=== PATIENT | female | born 1970 ===

== ENCOUNTER 2018-07-26 10:07 | Inpatient (IN) ==
[2018-07-26] MEDS ORDERED: ZALEPLON 5 MG CAPSULE PO PRN (11:20)
[2018-07-26] MEDS ORDERED: ONDANSETRON 4 MG/2 ML VIAL IV PRN (11:20)
[2018-07-26] MEDS ORDERED: POTASSIUM CHLORIDE 20 MEQ TABLET PO PRN (11:20)
[2018-07-26] MEDS ORDERED: MAGNESIUM SULF RIDER 4 GM in PREMIX 1 EACH IV PRN (11:20)
[2018-07-26] MEDS ORDERED: ACETAMINOPHEN 325 MG TABLET PO PRN (11:20)
[2018-07-26] MEDS ORDERED: MAGNESIUM SULF RIDER 2 GM in PREMIX 1 EACH IV PRN (11:20)
[2018-07-26] MEDS ORDERED: DOCUSATE SODIUM 100 MG CAPSULE PO PRN (11:20)
[2018-07-26] MEDS ORDERED: guaiFENesin/DM ER 600-30 MG TABLET PO PRN (11:20)
[2018-07-26] MEDS ORDERED: diphenhydrAMINE CAP 25 MG CAPSULE PO PRN (11:20)
[2018-07-26] MEDS ORDERED: LACTULOSE 20 GM/30 ML UDCUP PO PRN (11:20)
[2018-07-26] MEDS ORDERED: ceFAZolin 1,000 MG VIAL IRRIG ONE (11:26)
[2018-07-26] MEDS ORDERED: ceFAZolin 1,000 MG in SYRINGE 1 EACH IV ONE (11:26)
[2018-07-26 12:20] LABS: Basophils % 0.3 % (0.0-0.8); Eosinophils # 0.2 10*3/uL (0.0-0.87); Eosinophils % 2.5 % (0.00-10.9); Hematocrit 38.3 VOL% (35.7-47.0); Hemoglobin 12.2 GM/DL (12.0-16.0); Immature Granulocytes % 0.4 %; Immature Granulocytes Absolute 0.04 #; Lymphocytes # 2.4 10*3/uL (1.4-4.0); Lymphocytes % 25.7 % (21.3-54.2); Mean Corpuscular HGB Conc 31.9 GM/DL (32-36); Mean Corpuscular Hemoglobin 27 PG (27-34); Mean Corpuscular Volume 83.1 FL (87-102); Mean Platelet Volume 9.8 FL (9.6-12.0); Monocytes # 0.3 10*3/uL (0.11-0.8); Monocytes % 3.7 % (1.7-12.7); Neutrophils # 6.2 10*3/uL (1.4-7.4); Neutrophils % 67.4 % (38.7-73.9); Platelet Count 332 T/CUMM (130-400); Red Blood Count 4.61 MC/CUMM (3.8-5.5); Red Cell Distribution Width 14.4 % (9.3-17.3); White Blood Count 9.2 T/CUMM (4-12)
[2018-07-26] MEDS ORDERED: INFLUENZA VIRUS VACCINE 0.5 ML SYRINGE IM ONE (12:26)
[2018-07-26 12:35] LABS: INR 0.9; PT Patient Result 9.6 SECS
[2018-07-26 12:41] LABS: Calcium 8.8 MG/DL (8.5-10.1); Osmolality,Calculated 285.1 MOS/KG (273-304); Potassium 3.6 MMOL/L (3.5-5.1)
[2018-07-26 12:46] LABS: Troponin I < 0.015 NG/ML (0.00-0.045)
[2018-07-26 14:46] LABS: Troponin I < 0.015 NG/ML (0.00-0.045)
[2018-07-26] MEDS ORDERED: MIDAZOLAM 2 MG/2 ML VIAL ONE ×4 (14:59→16:53)
[2018-07-26] MEDS ORDERED: LIDOCAINE 1% 20 ML VIAL ONE (14:59)
[2018-07-26] MEDS ORDERED: fentaNYL 100 MCG/2 ML VIAL ONE ×3 (14:59→16:03)
[2018-07-26] MEDS ORDERED: HEPARIN/NACL 0.9% 2 UNITS/ML 500 ML IV ONE (14:59)
[2018-07-26] MEDS ORDERED: ceFAZolin 1,000 MG VIAL ONE (15:00)
[2018-07-26] MEDS ORDERED: TISSUE ADHESIVE 1 EACH APPLICATOR TOP ONE (16:57)
[2018-07-26] MEDS ORDERED: oxyCODONE/ACETAMINOPHEN 5-325 MG TABLET PO PRN (17:14)
[2018-07-26] MEDS ORDERED: DEXTROSE 50% 25 GM/50 ML SYRINGE IV PRN (17:25)
[2018-07-26] MEDS ORDERED: GLUCAGON 1 MG VIAL IM PRN (17:25)
[2018-07-26] MEDS ORDERED: metFORMIN 500 MG TABLET PO SCH (21:00)
[2018-07-26] MEDS ORDERED: glyBURIDE 5 MG TABLET PO SCH (21:00)
[2018-07-26 21:07] LABS: Troponin I 0.357 NG/ML (0.00-0.045)
[2018-07-26] MEDS: INSULIN LISPRO 100 UNIT/ML SUBCUT SCH (21:54)
[2018-07-26] MEDS: ceFAZolin 1,000 MG in SYRINGE 1 EACH IV SCH (23:04)
[2018-07-27 05:14] LABS: Basophils % 0.3 % (0.0-0.8); Eosinophils # 0.2 10*3/uL (0.0-0.87); Eosinophils % 1.8 % (0.00-10.9); Hematocrit 39.2 VOL% (35.7-47.0); Hemoglobin 12.4 GM/DL (12.0-16.0); Immature Granulocytes % 0.4 %; Immature Granulocytes Absolute 0.05 #; Lymphocytes # 3.6 10*3/uL (1.4-4.0); Lymphocytes % 31.2 % (21.3-54.2); Mean Corpuscular HGB Conc 31.6 GM/DL (32-36); Mean Corpuscular Hemoglobin 26 PG (27-34); Mean Platelet Volume 9.7 FL (9.6-12.0); Monocytes # 0.6 10*3/uL (0.11-0.8); Monocytes % 5.1 % (1.7-12.7); Neutrophils # 7.1 10*3/uL (1.4-7.4); Neutrophils % 61.2 % (38.7-73.9); Platelet Count 359 T/CUMM (130-400); Red Blood Count 4.78 MC/CUMM (3.8-5.5); Red Cell Distribution Width 14.2 % (9.3-17.3); White Blood Count 11.7 T/CUMM (4-12)
[2018-07-27 05:26] LABS: Calcium 8.8 MG/DL (8.5-10.1); Osmolality,Calculated 276.8 MOS/KG (273-304); Potassium 4.1 MMOL/L (3.5-5.1)
[2018-07-27 08:25] VITALS: BP 142/77
[2018-07-27] MEDS: INSULIN LISPRO 100 UNIT/ML SUBCUT SCH (08:26)
[2018-07-27] MEDS: ceFAZolin 1,000 MG in SYRINGE 1 EACH IV SCH (08:40)
[2018-07-27] MEDS ORDERED: LISINOPRIL 10 MG TABLET PO SCH (09:00)
[2018-07-27] MEDS ORDERED: METOPROLOL SUCCINATE XL 50 MG TABLET PO SCH (09:00)
[2018-07-27] MEDS ORDERED: ASPIRIN EC 81 MG TABLET PO SCH (09:00)
[2018-07-27] MEDS ORDERED: PANTOPRAZOLE 40 MG TABLET PO SCH (09:00)
[2018-07-27] MEDS ORDERED: metFORMIN 500 MG TABLET PO SCH (09:00)
[2018-07-27] MEDS ORDERED: ceFAZolin 1,000 MG in SYRINGE 1 EACH IV SCH (09:00)
[2018-07-27] MEDS ORDERED: glyBURIDE 5 MG TABLET PO SCH (09:00)
[2018-07-27] MEDS ORDERED: CYANOCOBALAMIN 500 MCG TABLET PO SCH (09:00)
[2018-07-27] MEDS ORDERED: ATORVASTATIN 40 MG TABLET PO SCH (09:00)
[2018-07-27] MEDS ORDERED: sitaGLIPtin 100 MG TABLET PO SCH (09:00)
== END 2018-07-27 11:25 | disposition home or self-care (01) | DRG 244 ==
LOC: INTOOBSV 11:20 → N.TELEN 11:21
PROVIDERS: ADMIT Internal Medicine Clinical Cardiac Electrophysiology; ATTEND Internal Medicine Clinical Cardiac Electrophysiology

== ENCOUNTER 2018-08-31 23:38 | Inpatient (IN) ==
[2018-09-01] MEDS ORDERED: MAGNESIUM SULF RIDER 4 GM in PREMIX 1 EACH IV PRN (00:16)
[2018-09-01] MEDS ORDERED: ONDANSETRON 4 MG/2 ML VIAL IV PRN (00:16)
[2018-09-01] MEDS ORDERED: MAGNESIUM SULF RIDER 2 GM in PREMIX 1 EACH IV PRN (00:16)
[2018-09-01] MEDS ORDERED: DOCUSATE SODIUM 100 MG CAPSULE PO PRN (00:16)
[2018-09-01] MEDS ORDERED: VANCOMYCIN INJ 1,000 MG in SODIUM CHLORIDE 0.9% 250 ML IV STA (00:16)
[2018-09-01 01:36] LABS: Basophils % 0.4 % (0.0-0.8); Eosinophils # 0.3 10*3/uL (0.0-0.87); Eosinophils % 2.9 % (0.00-10.9); Hematocrit 35.7 VOL% (35.7-47.0); Hemoglobin 11.1 GM/DL (12.0-16.0); Immature Granulocytes % 0.5 %; Immature Granulocytes Absolute 0.05 #; Lymphocytes # 3.8 10*3/uL (1.4-4.0); Mean Corpuscular HGB Conc 31.1 GM/DL (32-36); Mean Platelet Volume 9.7 FL (9.6-12.0); Monocytes % 5.3 % (1.7-12.7); Neutrophils % 54.9 % (38.7-73.9); Platelet Count 272 T/CUMM (130-400); Red Blood Count 4.25 MC/CUMM (3.8-5.5); Red Cell Distribution Width 14.3 % (9.3-17.3); White Blood Count 10.5 T/CUMM (4-12)
[2018-09-01 01:42] LABS: INR 0.9; PT Patient Result 9.8 SECS
[2018-09-01 02:00] LABS: Albumin 3.5 G/DL (3.4-5.0); Bilirubin,Total 0.4 MG/DL (0.2-1.0); Calcium 8.5 MG/DL (8.5-10.1); Osmolality,Calculated 282.1 MOS/KG (273-304); Total Protein 7.4 G/DL (6.4-8.3)
[2018-09-01 06:14] LABS: Basophils # 0.1 10*3/uL (0.0-0.2); Basophils % 0.5 % (0.0-0.8); Eosinophils # 0.4 10*3/uL (0.0-0.87); Eosinophils % 3.4 % (0.00-10.9); Hematocrit 35.9 VOL% (35.7-47.0); Immature Granulocytes % 0.4 %; Immature Granulocytes Absolute 0.04 #; Lymphocytes % 36.9 % (21.3-54.2); Mean Corpuscular HGB Conc 30.6 GM/DL (32-36); Mean Corpuscular Volume 83.5 FL (87-102); Mean Platelet Volume 10.2 FL (9.6-12.0); Monocytes % 4.5 % (1.7-12.7); Neutrophils % 54.3 % (38.7-73.9); Platelet Count 262 T/CUMM (130-400); Red Cell Distribution Width 14.3 % (9.3-17.3); White Blood Count 10.7 T/CUMM (4-12)
[2018-09-01 06:55] LABS: Albumin 3.2 G/DL (3.4-5.0); Bilirubin,Total 0.4 MG/DL (0.2-1.0); Calcium 8.4 MG/DL (8.5-10.1); Osmolality,Calculated 282.1 MOS/KG (273-304); Total Protein 6.7 G/DL (6.4-8.3)
[2018-09-01] MEDS: PANTOPRAZOLE 40 MG TABLET PO SCH (08:06)
[2018-09-01] MEDS ORDERED: ACETAMINOPHEN 325 MG TABLET PO PRN (12:43)
[2018-09-01] MEDS ORDERED: DEXTROSE 50% 25 GM/50 ML SYRINGE IV PRN (12:44)
[2018-09-01] MEDS ORDERED: GLUCAGON 1 MG VIAL IM PRN (12:44)
[2018-09-01] MEDS: PIPERACILLIN/TAZOBACTAM 3,375 MG in SODIUM CHLORIDE 0.9% 100 ML IV SCH ×2 (13:22→20:30)
[2018-09-01] MEDS: INSULIN REGULAR 100 UNIT/ML SUBCUT SCH ×2 (16:19→20:30)
[2018-09-01] MEDS: metFORMIN 500 MG TABLET PO SCH (20:30)
[2018-09-01] MEDS: glyBURIDE 5 MG TABLET PO SCH (20:32)
[2018-09-02] MEDS: VANCOMYCIN INJ 1,000 MG in SODIUM CHLORIDE 0.9% 250 ML IV SCH ×3 (00:38→23:48)
[2018-09-02] MEDS: PIPERACILLIN/TAZOBACTAM 3,375 MG in SODIUM CHLORIDE 0.9% 100 ML IV SCH ×3 (05:20→20:45)
[2018-09-02] MEDS: INSULIN REGULAR 100 UNIT/ML SUBCUT SCH ×4 (08:17→20:44)
[2018-09-02 08:39] LABS: Basophils % 0.6 % (0.0-0.8); Eosinophils # 0.3 10*3/uL (0.0-0.87); Eosinophils % 3.7 % (0.00-10.9); Hematocrit 36.5 VOL% (35.7-47.0); Hemoglobin 11.6 GM/DL (12.0-16.0); Immature Granulocytes % 0.4 %; Immature Granulocytes Absolute 0.03 #; Lymphocytes # 2.7 10*3/uL (1.4-4.0); Lymphocytes % 40.2 % (21.3-54.2); Mean Corpuscular HGB Conc 31.8 GM/DL (32-36); Mean Corpuscular Volume 81.8 FL (87-102); Mean Platelet Volume 9.8 FL (9.6-12.0); Monocytes % 5.2 % (1.7-12.7); Neutrophils % 49.9 % (38.7-73.9); Platelet Count 278 T/CUMM (130-400); Red Blood Count 4.46 MC/CUMM (3.8-5.5); Red Cell Distribution Width 14.2 % (9.3-17.3); White Blood Count 6.8 T/CUMM (4-12)
[2018-09-02] MEDS: glyBURIDE 5 MG TABLET PO SCH ×2 (10:07→20:45)
[2018-09-02] MEDS: sitaGLIPtin 100 MG TABLET PO SCH (10:08)
[2018-09-02] MEDS: CYANOCOBALAMIN 500 MCG TABLET PO SCH (10:08)
[2018-09-02] MEDS: metFORMIN 500 MG TABLET PO SCH ×2 (10:08→20:45)
[2018-09-02] MEDS: ATORVASTATIN 40 MG TABLET PO SCH (10:40)
[2018-09-02] MEDS: PANTOPRAZOLE 40 MG TABLET PO SCH (10:40)
[2018-09-02] MEDS: METOPROLOL SUCCINATE XL 50 MG TABLET PO SCH (10:40)
[2018-09-02] MEDS: LISINOPRIL 10 MG TABLET PO SCH (10:40)
[2018-09-02] MEDS: ASPIRIN EC 81 MG TABLET PO SCH (10:40)
[2018-09-02] MEDS ORDERED: PROPOFOL 200 MG/20 ML VIAL IV ONE (11:18)
[2018-09-02] MEDS ORDERED: ETOMIDATE 40 MG/20 ML VIAL IV ONE (11:18)
[2018-09-02 12:28] LABS: Calcium 8.4 MG/DL (8.5-10.1); Osmolality,Calculated 279.4 MOS/KG (273-304)
[2018-09-03] MEDS: PIPERACILLIN/TAZOBACTAM 3,375 MG in SODIUM CHLORIDE 0.9% 100 ML IV SCH ×3 (05:53→21:19)
[2018-09-03 06:51] LABS: Basophils % 0.2 % (0.0-0.8); Eosinophils # 0.3 10*3/uL (0.0-0.87); Eosinophils % 3.4 % (0.00-10.9); Hematocrit 37.2 VOL% (35.7-47.0); Hemoglobin 11.9 GM/DL (12.0-16.0); Immature Granulocytes % 0.5 %; Immature Granulocytes Absolute 0.05 #; Lymphocytes % 30.2 % (21.3-54.2); Mean Corpuscular Volume 81.2 FL (87-102); Mean Platelet Volume 9.6 FL (9.6-12.0); Monocytes % 4.7 % (1.7-12.7); Platelet Count 288 T/CUMM (130-400); Red Blood Count 4.58 MC/CUMM (3.8-5.5); Red Cell Distribution Width 14.1 % (9.3-17.3); White Blood Count 9.8 T/CUMM (4-12)
[2018-09-03 07:31] LABS: Osmolality,Calculated 282.3 MOS/KG (273-304)
[2018-09-03] MEDS: CYANOCOBALAMIN 500 MCG TABLET PO SCH (08:31)
[2018-09-03] MEDS: sitaGLIPtin 100 MG TABLET PO SCH (08:31)
[2018-09-03] MEDS: metFORMIN 500 MG TABLET PO SCH ×2 (08:31→21:19)
[2018-09-03] MEDS: LISINOPRIL 10 MG TABLET PO SCH (08:31)
[2018-09-03] MEDS: ATORVASTATIN 40 MG TABLET PO SCH (08:31)
[2018-09-03] MEDS: METOPROLOL SUCCINATE XL 50 MG TABLET PO SCH (08:31)
[2018-09-03] MEDS: glyBURIDE 5 MG TABLET PO SCH ×2 (08:32→21:19)
[2018-09-03] MEDS: INSULIN REGULAR 100 UNIT/ML SUBCUT SCH ×4 (08:32→21:19)
[2018-09-03] MEDS: PANTOPRAZOLE 40 MG TABLET PO SCH (08:32)
[2018-09-03] MEDS: ASPIRIN EC 81 MG TABLET PO SCH (08:32)
[2018-09-03] MEDS: VANCOMYCIN INJ 1,000 MG in SODIUM CHLORIDE 0.9% 250 ML IV SCH (12:29)
[2018-09-04] MEDS: VANCOMYCIN INJ 1,000 MG in SODIUM CHLORIDE 0.9% 250 ML IV SCH (01:12)
[2018-09-04 04:41] LABS: Basophils # 0.1 10*3/uL (0.0-0.2); Basophils % 0.5 % (0.0-0.8); Eosinophils # 0.4 10*3/uL (0.0-0.87); Eosinophils % 3.7 % (0.00-10.9); Hematocrit 36.1 VOL% (35.7-47.0); Hemoglobin 11.4 GM/DL (12.0-16.0); Immature Granulocytes % 0.5 %; Immature Granulocytes Absolute 0.05 #; Lymphocytes # 3.7 10*3/uL (1.4-4.0); Mean Corpuscular HGB Conc 31.6 GM/DL (32-36); Monocytes % 4.3 % (1.7-12.7); Platelet Count 277 T/CUMM (130-400); Red Blood Count 4.35 MC/CUMM (3.8-5.5); Red Cell Distribution Width 14.2 % (9.3-17.3); White Blood Count 9.7 T/CUMM (4-12)
[2018-09-04 04:55] LABS: Calcium 8.4 MG/DL (8.5-10.1); Osmolality,Calculated 287.1 MOS/KG (273-304)
[2018-09-04] MEDS: PIPERACILLIN/TAZOBACTAM 3,375 MG in SODIUM CHLORIDE 0.9% 100 ML IV SCH (05:35)
[2018-09-04 08:26] VITALS: BP 117/74
[2018-09-04] MEDS: INSULIN REGULAR 100 UNIT/ML SUBCUT SCH (09:40)
[2018-09-04] MEDS: sitaGLIPtin 100 MG TABLET PO SCH (09:41)
[2018-09-04] MEDS: LISINOPRIL 10 MG TABLET PO SCH (09:41)
[2018-09-04] MEDS: glyBURIDE 5 MG TABLET PO SCH (09:41)
[2018-09-04] MEDS: metFORMIN 500 MG TABLET PO SCH (09:41)
[2018-09-04] MEDS: CYANOCOBALAMIN 500 MCG TABLET PO SCH (09:42)
[2018-09-04] MEDS: ASPIRIN EC 81 MG TABLET PO SCH (09:42)
[2018-09-04] MEDS: METOPROLOL SUCCINATE XL 50 MG TABLET PO SCH (09:42)
[2018-09-04] MEDS: ATORVASTATIN 40 MG TABLET PO SCH (09:42)
[2018-09-04] MEDS: PANTOPRAZOLE 40 MG TABLET PO SCH (09:43)
== END 2018-09-04 13:12 | disposition home or self-care (01) | DRG 315 ==
LOC: EDUNIT# → EDBD → N.ED 23:38 → N.EDINP 23:38 → N.TELEN 09-01 00:51
PROVIDERS: ADMIT Internal Medicine Cardiovascular Disease; ATTEND Internal Medicine Cardiovascular Disease